=== PATIENT | female | born 1940 | race Caucasian/White ===

== ENCOUNTER 2018-01-08 23:22 | Inpatient (IN) | payer OTHER ==
[~2018-01-08] VITALS: Ht 172.7 cm; Wt 107.6 kg
[2018-01-09] VITALS (7 sets, daily range): BP systolic 108–169; BP diastolic 50–84; PULSE 70–92; TEMP 36.4–36.7; O2SAT 94–96; Ht 172.7 cm; Wt 107.6 kg
--- NOTE | 2018-01-09 00:29 | History and Physical ---
History & Physical Date & Time of Service: Jan 09, 2018 at 00:29 Chief Complaint: Sepsis Primary Care Physician: History of Present Illness Source: patient, family Patient is a 77-year-old female with past medical history of hypothyroidism, hypertension, CKD III, dyslipidemia, gallstone pancreatitis, liver abscess, ? intra-hepatic biliary malignant neoplasm as per records and other problems was a direct admit from [facility]. Patient has been complaining of diffuse abdominal pain since Friday. She states it is bandlike which is across the abdomen and intermittently radiates to the back. She grades the pain as 1/10, discomfort like, aggravates with food intake with no obvious relieving factors. Reports associated generalized weakness, nausea. Patient had significant elevated LFTs, lipase, lactic acid on labs at [facility]. Noncontrast CT of the abdomen is suggestive of new postoperative changes of cholecystectomy with increased biliary dilatation with no visible choledocholithiasis. New significant lymphadenopathy in the left external iliac chain, left inguinal region and to a lesser extent left common iliac chain suggestive of reactive lymphadenopathy or malignant lymph node enlargement. Also showed urinary bladder wall thickening suggestive of diffuse cystitis. Patient received IV fluids, Zosyn and Flagyl and was sent to [facility] for further management. Patient also reports having dysuria and difficulty with urination since last few days. UA is suggestive of possible UTI. Denies any history of chest pain, SOB, dizziness, fever, chills, vomiting, blood in stools, diarrhea, hematuria. Past Medical/Surgical History Past medical history of hypothyroidism, hypertension, CKD III, dyslipidemia, gallstone pancreatitis, liver abscess, ? intra-hepatic biliary malignant neoplasm as per records Past Surgical History: Bilateral knee replacement, cholecystectomy (In Sep 2016) , thyroidectomy Family History Mother: Colon cancer Social History Smoking Status: Never Smoker Alcohol Use: none Drug Use: none Allergies Uncoded Allergies: dairy products (Allergy, Unknown, GI SYMPTOMS, 01/09/18) lactose intolerant Home Medications Scheduled Ezetimibe (Zetia), 10 MG PO DAILY Levothyroxine Sodium (Levothyroxine Sodium), 1 TAB PO DAILY Lisinopril (Zestril), 10 MG PO DAILY Perphenazine-Amitriptyline (Perphenazine/Amitriptylin), 2 MG PO QID Review of Systems See HPI for pertinent positives & negatives. A total of 10 systems reviewed and were otherwise negative. Physical Exam General Appearance: WD/WN, no apparent distress Head: normocephalic, atraumatic Eyes: normal inspection, PERRL, EOMI, + pertinent finding (+Icterus) ENT: normal ENT inspection, hearing grossly normal Neck: supple, trachea midline Respiratory/Chest: chest non-tender, lungs clear, normal breath sounds, no respiratory distress, no accessory muscle use Cardiovascular: regular rate, rhythm, no murmur, + pertinent finding (1+ b/l edema) Abdomen/GI: normal bowel sounds, soft, + tenderness (mild generalized tenderness, no guarding or rigidity) Back: normal inspection Extremities/Musculoskelatal: no calf tenderness, + pedal edema 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 New significant lymphadenopathy in the left external iliac chain, left inguinal region and to a lesser extent left common iliac chain suggestive of reactive lymphadenopathy or malignant lymph node enlargement. Also showed urinary bladder wall thickening suggestive of diffuse cystitis. Liver USD: pending EKG EKG: pending Impression Assessment and Plan Sepsis: Secondary to possible Cholangitis, pancreatitis and UTI H/O Gallstone pancreatitis and Cholecystectomy CT abd:suggestive of new postoperative changes of cholecystectomy with increased biliary dilatation with no visible choledocholithiasis. New significant lymphadenopathy suggestive of reactive lymphadenopathy or malignant lymph node enlargement. Also showed urinary bladder wall thickening suggestive of diffuse cystitis. Significant transaminitis, hyperbilirubinemia on labs ? Intra-hepatic biliary malignant neoplasm as per records (Family/Patient denies any known malignancy) Lipase:22,784 Lactate normal Admit in telemetry Blood/Urine cultures IV fluids, start on IV Zosyn Liver ultrasound pending Consulted GI for possible ERCP NPO for now Pain not significant currently Zetia and Triavil held UTI: Started on IV Zosyn Follow-up urine culture Hypomagnesemia: Replace and monitor Hypothyroidism: Continue levothyroxine TSH normal Hypertension: Hold lisinopril 2/2 DIANA DIANA on CKD III: IV fluids Unknown baseline creatinine Monitor renal function Avoid nephrotoxic agents Cr:2.48 Dyslipidemia: Zetia held 2/2 Transaminitis DVT Px: SCDs Code Status: Patient prefers to be Full Code currently Family to bring living Will tomorrow. May need to readdress Code Status Disposition: Monitor in Telemetry Resuscitation Status VTE Prophylaxis Will order VTE Prophylaxis: Yes
[2018-01-09] MEDS ORDERED: LEVO88TA3 PO (01:31)
[2018-01-09] MEDS ORDERED: LISI-461 PO (01:31)
[2018-01-09] MEDS ORDERED: PERP2TAB6 PO (01:31)
[2018-01-09] MEDS ORDERED: EZET10TA63 PO (01:31)
[2018-01-09] MEDS ORDERED: SODIUM CHLORIDE 0.9% 1000ML 1,000 ML IV SCH (02:30)
[2018-01-09] MEDS ORDERED: ONDANSETRON INJ 2 MG/ML 2 ML VIAL IV PRN ×2 (02:30→15:45)
[2018-01-09] MEDS ORDERED: PIPERACILL/TAZOBAC IV 4.5 GM in NSS 100 ML IV ONE (02:30)
[2018-01-09] MEDS ORDERED: PIPERACILL/TAZOBAC CONSULT ACTIVE PRN (02:45)
[2018-01-09 04:00] LABS: INR 1.1 (0.9-1.1)
[2018-01-09 04:02] LABS: ALBUMIN 2.6 gm/dl (3.4-5.0); CALCIUM 8.6 mg/dl (8.5-10.1); CREATININE 2.48 mg/dl (0.60-1.20); TOTAL PROTEIN 6.5 gm/dl (6.4-8.2)
[2018-01-09 04:07] LABS: HEMATOCRIT 38.3 % (37-47); HEMOGLOBIN 12.7 g/dL (12.0-16.0); MEAN CELL VOLUME 94.8 fL (80-100); MEAN CORPUSCULAR HEMOGLOBIN 31.4 pg (25-34); MEAN CORPUSCULAR HGB CONC 33.2 g/dl (32-36); MEAN PLATELET VOLUME 10.3 fL (7.4-10.4); PLATELET COUNT 285 K/uL (130-400); RED CELL DISTRIBUTION WIDTH CV 15.1 % (11.5-14.5); WHITE BLOOD COUNT 14.58 K/uL (4.8-10.8)
[2018-01-09] MEDS ORDERED: MAGNESIUM SULFATE 1GM / D5W 1 GM in PREMIXED IN D5W 100 ML IV ONE (04:15)
[2018-01-09 04:27] LABS: BASO % 0.1 %; BASO ABS # 0.02 K/uL (0-0.2); EOS % 0.3 %; EOS ABS # 0.04 K/uL (0-0.5); IG# 0.04 K/uL (0.00-0.02); LYMPH % 52.8 %; MONO % 5.3 %; MONO ABS # 0.78 K/uL (0.11-0.59); NEUT % 41.2 %
[2018-01-09] MEDS: LEVOTHYROXINE 88 MCG TAB PO SCH (05:57)
--- NOTE | 2018-01-09 06:27 | DIAGNOSTIC IMAGING REPORT ---
ABDOMINAL ULTRASOUND, RIGHT UPPER QUADRANT HISTORY: Transaminitis. COMPARISON: CT of the abdomen and pelvis January 08, 2018 FINDINGS: No hepatic lesions are noted. There is moderate intrahepatic biliary ductal dilatation. The common bile duct is also dilated, measuring 10 mm in caliber. No common bile duct calculi are identified on this exam. The pancreas is obscured by overlying bowel gas. Note is made of a 2 x 1 x 1.3 cm cystic structure with a few linear echogenic foci within the cholecystectomy bed. IMPRESSION: 1. Moderate intra and extrahepatic biliary ductal dilatation. No common bile duct calculi or mass identified. While this could be due to previous cholecystectomy, the findings raise the possibility of occult choledocholithiasis or obstructing mass. GI consultation is recommended. 2. Obscured pancreas due to overlying bowel gas. 3. 2 x 1.1 x 1.3 cm cystic structure within the cholecystectomy bed which may reflect a dilated cystic duct remnant or gallbladder remnant. Electronically signed by: Steve Oscar M.D. 01/09/2018 6:25 AM Dictated Date/Time: 01/09/2018 6:20 AM
[2018-01-09] MEDS: PIPERACILL/TAZOBAC IV 4.5 GM in NSS 100 ML IV SCH ×2 (07:49→19:38)
--- NOTE | 2018-01-09 08:28 | Gastrointestinal Consultation ---
Gastrointestinal Consultation Date of Consultation: Jan 09, 2018 Attending Physician: Emiliano Consulting Physician: Narayan Reason for Consultation: elevated LFTs, possible cholangitis History of Present Illness Patient is a 77 year old female w/ history listed below with admission to [facility] about a year ago for gallstone pancreatitis s/p cholecystectomy complicated by post-operative infection and suspected liver abscess. At this time she had a liver bx, necrotic liver tissue, with doubt of liver abscess. Due to the necrotic tissue, they could not rule out malignancy at this time. It appears there was arranged follow up after discharge, but the appointments were missed. Pt notes from discharge a year ago until today she has overall been feeling well. Developed diffuse lower abdominal pain about a week ago. She report this is actually bilateral lower quadrants. This is worse with activity and movement. She tells me there has been vague upper abd pain, worse after PO intake. No nausea, vomiting. She reports stable weight, no unexplained weight loss, ill-fitting clothes. Dark urine, no pattie colored stools. No fever, chills , CP, SOB. She was transferred from [place] for suspected cholangitis, on Zosyn. On arrival leukocytosis at 15, plts 285, TB 6.4, AST 250, ALT 180, ALK 760, lipase 22,000. RUQ US 01/09/18: No hepatic lesions are noted. There is moderate intrahepatic biliary ductal dilatation. The common bile duct is also dilated, measuring 10 mm in caliber. No common bile duct calculi are identified on this exam. The pancreas is obscured by overlying bowel gas. Note is made of a 2 x 1 x 1.3 cm cystic structure with a few linear echogenic foci within the cholecystectomy bed Noncontrast CT ABD 01/08/18: postoperative changes of cholecystectomy with increased biliary dilatation with no visible choledocholithiasis. New significant lymphadenopathy in the left external iliac chain, left inguinal region and to a lesser extent left common iliac chain suggestive of reactive lymphadenopathy or malignant lymph node enlargement. Also showed urinary bladder wall thickening suggestive of diffuse cystitis. ABD US 12/20/16: Cholelithiasis with gallbladder wall thickening and edema, concerning for cholecystitis.Incidentally noted nonocclusive thrombus of the posterior branch of the right portal vein and occlusive thrombus of the anterior branch of the right portal vein. Cystic structures seen in the dome of the liver were better evaluated on the most recent MRI scan.Hepatic steatosis. CT Chest/Abd/Pelvis 12/23/16: Several scattered pulmonary nodules bilaterally, concerning for metastases. Additional history from [facility] (electronic medical record) indicates history of lung carcinoid tumor. Small pleural effusions bilaterally, right greater than left. Complex hypodense mass at the hepatic dome, suspicious for malignancy. 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 Enlarged lobulated uterus approximates 9.4 x 7.5 cm on axial image 74/100. While this may represent underlying leiomyomas, potential malignancy is not excluded given patient's age. There is small amount of gas in the non-dependent portion of the urinary bladder. There is no Young catheter seen on this study. Has there been recent catheterization/instrumentation?If not, please consider infection or statistically less likely enterovesical fistula. Moderate-sized hiatal hernia. Liver MRI 12/22/16: Limited study since dynamic post-contrast sequences are severely degraded by respiratory motion artifacts and lack of subtraction images. Multiple complex lesions in the right lobe of the liver with predominantly cystic areas associated with portal venous thrombosis and periportal edema. Dominant lesion shows enhancement of solid areas and delayed enhancement of the capsule. No significant washout. Although some of the imaging features favor abscesses, there is no significant diffusion restriction which is characteristically seen in abscesses.These findings are suspicious for a neoplastic process and differential including necrotic primary and secondary neoplasms such as cholangiocarcinoma, hepatocellular carcinoma, necrotic metastasis and biliary cystadenocarcinoma.4.1 cm diffusion restricting T2 hyperintense lesion in the retroperitoneum, anterior to left renal vein is concerning for lymphadenopathy.Multiple nodules in the lower lobes are suspicious for metastasis.Recommend CT chest, abdomen and pelvis with intravenous and oral contrast to assess for the extent of the disease. Also consider short interval followup versus biopsy for further characterization of these lesions.Cholelithiasis. Interval improvement of gallbladder wall thickening and fluid within the gallbladder fossa. Liver Biopsy 12/23/16: Atypical. Rare hepatocytes with abundant necrosis and rare mixed inflammatory cells. Core needle biopsy: The core needle biopsy specimen contains fragments of necrotic liver tissue with a few lymphocytes and neutrophils. Immunostains show the liver tissue is positive for hepar-1 and negative for CKAE1/3, CD56, and synapptophysin. Comment: No definitive diagnosis can be reached due to necrotic liver tissue. A neoplastic process cannot be completely excluded. The abscess is less likely without the presence of abundant neutrophils. Past Medical/Surgical History Medical Problems: (1) Hypothyroid Status: Chronic Past Medical History: HTN, CKD-3, hypothyroidism, dyslipidemia, hx gallstone pancreatitis, hx recurrent pancreatitis, hx liver abscess, There is questionable history of intra-hepatic biliary malignant neoplasm - liver lesion was bx and excludes this as far as I can find report of. Pt does not recall being told she had a CA Past Surgical History: Bilateral knee replacement, cholecystectomy, thyroidectomy, liver bx Social History Smoking Status: Never Smoker Drug Use: none Allergies Uncoded Allergies: dairy products (Allergy, Unknown, GI SYMPTOMS, 01/09/18) lactose intolerant Current Medications Home Meds and Scripts Medications Dose Route/Sig Max Daily Dose Days Date Category Zetia (Ezetimibe) 10 Mg Tab 10 Mg PO DAILY 01/09/18 Reported Levothyroxine Sodium 88 Mcg Tab 1 Tab PO DAILY 30 01/09/18 Reported Zestril (Lisinopril) 10 Mg Tab 10 Mg PO DAILY 01/09/18 Reported Perphenazine/Amitriptylin (Perphenazine-Amitriptyline) 1 Tab Tab 2 Mg PO QID 01/09/18 Reported Review of Systems Constitutional: No fever, No chills, No weight loss, No weakness, No fatigue Respiratory: No cough, No shortness of breath Cardiac: No chest pain, No edema Abdomen: + pain, No nausea, No vomiting, No diarrhea, No constipation, No GI bleeding, No dysphagia, No odynophagia Skin: + jaundice, No rash, No color change Physical Exam Date Time Temp Pulse Resp B/P (MAP) Pulse Ox O2 Delivery O2 Flow Rate FiO2 01/09/18 07:56 36.6 84 21 169/84 (112) 95 Room Air 01/09/18 04:36 36.5 86 18 108/50 (69) 94 Room Air 01/09/18 04:00 96 Room Air 01/09/18 00:15 36.7 92 18 113/73 96 Room Air General Appearance: no apparent distress Eyes: PERRL ENT: hearing grossly normal Neck: supple, trachea midline Respiratory/Chest: lungs clear, normal breath sounds, no respiratory distress, no accessory muscle use Cardiovascular: regular rate, rhythm, no edema, no gallop, no JVD Abdomen: normal bowel sounds, soft, no organomegaly, no pulsatile mass, + tenderness (generalized abd tenderness, no rebound or guarding) Neurologic/Psych: alert, normal mood/affect, oriented x 3 Skin: normal color, warm/dry, no rash, + jaundice Laboratory Results Last 24 Hours Test 01/09/18 02:56 01/09/18 03:13 Lactic Acid Level 1.2 mmol/L White Blood Count 14.58 K/uL Red Blood Count 4.04 M/uL Hemoglobin 12.7 g/dL Hematocrit 38.3 % Mean Corpuscular Volume 94.8 fL Mean Corpuscular Hemoglobin 31.4 pg Mean Corpuscular Hemoglobin Concent 33.2 g/dl Platelet Count 285 K/uL Mean Platelet Volume 10.3 fL Neutrophils (%) (Auto) 41.2 % Lymphocytes (%) (Auto) 52.8 % Monocytes (%) (Auto) 5.3 % Eosinophils (%) (Auto) 0.3 % Basophils (%) (Auto) 0.1 % Neutrophils # (Auto) 6.00 K/uL Lymphocytes # (Auto) 7.70 K/uL Monocytes # (Auto) 0.78 K/uL Eosinophils # (Auto) 0.04 K/uL Basophils # (Auto) 0.02 K/uL RDW Standard Deviation 52.0 fL RDW Coefficient of Variation 15.1 % Immature Granulocyte % (Auto) 0.3 % Immature Granulocyte # (Auto) 0.04 K/uL Blood Smear Review Platelet Estimate NORMAL Red Blood Cell Morphology Unremarkable Prothrombin Time 11.4 SECONDS Prothromb Time International Ratio 1.1 Sodium Level 139 mmol/L Potassium Level 4.0 mmol/L Chloride Level 109 mmol/L Carbon Dioxide Level 24 mmol/L Anion Gap 6.0 mmol/L Blood Urea Nitrogen 24 mg/dl Creatinine 2.48 mg/dl Est Creatinine Clear Calc Drug Dose 22.9 ml/min Estimated GFR () 20.7 Estimated GFR (Non- 17.9 BUN/Creatinine Ratio 9.8 Random Glucose 119 mg/dl Calcium Level 8.6 mg/dl Magnesium Level 1.7 mg/dl Total Bilirubin 6.4 mg/dl Aspartate Amino Transf (AST/SGOT) 256 U/L Alanine Aminotransferase (ALT/SGPT) 185 U/L Alkaline Phosphatase 764 U/L Total Protein 6.5 gm/dl Albumin 2.6 gm/dl Globulin 3.9 gm/dl Albumin/Globulin Ratio 0.7 Lipase 66867 U/L Thyroid Stimulating Hormone (TSH) 4.190 uIu/ml Impression Patient is a 77 year old female w/ history of cholecystectomy in 2017 for recurrent gallstone pancreatitis complicated by suspected post-operative infection with concern for liver abscess. Liver biopsy w/ necrotic tissue w/o evidence of abscess. Malignancy was not ruled out as the tissue as necrotic. Pt was without insurance and was lost to insurance. Was doing well until she had generalized abd pain last week, bilateral lower quadrants w/ vague upper abd pain worse after PO intake. No nausea or vomiting. No weight loss. Leukocytosis at 15, TB 6 w/ elevated transaminases. Concern for cholangitis, underlying biliary malignancy. No evidence of CBD stone or mass on non-contrast CT. Plan - NPO - LR 200 ml/hr - Analgesia PRN - Antiemetics PRN - Agree with ABX for cholangitis - Daily LFTs - Suggested MRCP to further delineate CBD. - Pt deferred due to claustrophobia - Suggested pre-medication, pt deferred - Plan for ERCP - Please call with any acute changes, questions or concern. I performed a history and physical examination of the patient. I have discussed the patient's case, impression and plan with KAREN Lucas. Her note reflects my findings and plan. Given constellation of obstructive enzyme pattern, history of gall stones and elevated pancreas enzymes, CBD stone disease is likely. Will arrange ERCP. Carmine Busch MD
[2018-01-09] MEDS ORDERED: NURSING VERBAL MED ORDER ONE (10:30)
[2018-01-09] MEDS: LACTATED RINGER'S 1000ML 1,000 ML IV SCH ×3 (10:57→21:19)
--- NOTE | 2018-01-09 11:23 | Progress Note ---
Subjective Date of Service: Jan 09, 2018. Subjective Pt evaluation today including: conversation w/ patient, physical exam, lab review, review of studies, review of inpatient medication list Saw/examined the patient in room 203 Abdominal tenderness for a week, epigastric through lower quadrants Denies fevers/chills denies nausea/vomiting/diarrhea Problem List Medical Problems: (1) Hypothyroid Status: Chronic Review of Systems Constitutional: No fever, No chills Respiratory: No shortness of breath Cardiac: No chest pain Abdomen: + pain, No nausea, No vomiting, No diarrhea Medications Current Inpatient Medications Medications (Trade) Dose Ordered Sig/Candi Route Start Time Stop Time Status Last Admin Dose Admin Ondansetron HCl (Zofran Inj) 4 mg Q6H PRN IV 01/09/18 02:30 02/08/18 02:29 Miscellaneous Information (Consult) 1 ea UD PRN N/A 01/09/18 02:45 02/08/18 02:44 Levothyroxine Sodium (Synthroid Tab) 88 mcg DAILYBB PO 01/09/18 06:00 02/08/18 05:59 01/09/18 05:57 88 MCG Piperacillin Sod/ Tazobactam Sod 4.5 gm/Sodium Chloride 120 ml @ 30 mls/hr Q8H IV 01/09/18 08:00 01/19/18 07:59 01/09/18 07:49 30 MLS/HR Lactated Ringer's 1,000 ml @ 200 mls/hr Q5H IV 01/09/18 11:00 02/08/18 10:59 01/09/18 10:57 200 MLS/HR Objective Vital Signs Date Time Temp Pulse Resp B/P (MAP) Pulse Ox O2 Delivery O2 Flow Rate FiO2 01/09/18 04:36 36.5 86 18 108/50 (69) 94 Room Air 01/09/18 04:00 96 Room Air 01/09/18 00:15 36.7 92 18 113/73 96 Room Air Physical Exam General Appearance: no apparent distress Respiratory/Chest: no respiratory distress, no accessory muscle use Cardiovascular: regular rate, rhythm, no edema, no murmur Abdomen: + tenderness (diffuse) Extremities: normal inspection, no pedal edema Neurologic/Psychiatric: no motor/sensory deficits, alert, normal mood/affect Laboratory Results Last 24 Hours Test 01/09/18 02:56 01/09/18 03:13 Lactic Acid Level 1.2 mmol/L White Blood Count 14.58 K/uL Red Blood Count 4.04 M/uL Hemoglobin 12.7 g/dL Hematocrit 38.3 % Mean Corpuscular Volume 94.8 fL Mean Corpuscular Hemoglobin 31.4 pg Mean Corpuscular Hemoglobin Concent 33.2 g/dl Platelet Count 285 K/uL Mean Platelet Volume 10.3 fL Neutrophils (%) (Auto) 41.2 % Lymphocytes (%) (Auto) 52.8 % Monocytes (%) (Auto) 5.3 % Eosinophils (%) (Auto) 0.3 % Basophils (%) (Auto) 0.1 % Neutrophils # (Auto) 6.00 K/uL Lymphocytes # (Auto) 7.70 K/uL Monocytes # (Auto) 0.78 K/uL Eosinophils # (Auto) 0.04 K/uL Basophils # (Auto) 0.02 K/uL RDW Standard Deviation 52.0 fL RDW Coefficient of Variation 15.1 % Immature Granulocyte % (Auto) 0.3 % Immature Granulocyte # (Auto) 0.04 K/uL Platelet Estimate NORMAL Red Blood Cell Morphology Unremarkable Prothrombin Time 11.4 SECONDS Prothromb Time International Ratio 1.1 Sodium Level 139 mmol/L Potassium Level 4.0 mmol/L Chloride Level 109 mmol/L Carbon Dioxide Level 24 mmol/L Anion Gap 6.0 mmol/L Blood Urea Nitrogen 24 mg/dl Creatinine 2.48 mg/dl Est Creatinine Clear Calc Drug Dose 22.9 ml/min Estimated GFR () 20.7 Estimated GFR (Non- 17.9 BUN/Creatinine Ratio 9.8 Random Glucose 119 mg/dl Calcium Level 8.6 mg/dl Magnesium Level 1.7 mg/dl Total Bilirubin 6.4 mg/dl Aspartate Amino Transf (AST/SGOT) 256 U/L Alanine Aminotransferase (ALT/SGPT) 185 U/L Alkaline Phosphatase 764 U/L Total Protein 6.5 gm/dl Albumin 2.6 gm/dl Globulin 3.9 gm/dl Albumin/Globulin Ratio 0.7 Lipase 43835 U/L Thyroid Stimulating Hormone (TSH) 4.190 uIu/ml Assessment and Plan This is a 77 year old female with a past medical history of HTN, HLD, hypothyroidism, hx. of recurrent gallstone pancreatitis s/p cholecystectomy, hx. of hypodense liver mass s/p biopsy, mood disorder - presents from [facility] due to abdominal pain, elevated LFTs Abdominal Pain and Elevated LFTs with Recurrent Pancreatitis Possible Cholangitis Hx. of Liver Mass and Concern for Biliary Duct Carcinoma - plan for now is to continue NPO status - changed NS to LR at 200mL/hr - appreciate GI input; cannot tolerate MRCP - plan for ERCP - continue Zosyn for possible underlying cholangitis - hx. of liver mass that was biopsied, with necrotic tissue - follow-up on lipase and LFTs in AM Acute Kidney Injury - possible underlying chronic kidney disease? - at this time, her creat is >2.4 - cont. IVFs - recheck in AM Urinary Tract Infection - as per records from [place], UA appears dirty - CT from [place] suggests bladder wall thickening - continue Zosyn Lymphocytosis - appreciate pathology input, concern for CLL - will order flow cytometry Lymphadenopathy - CT suggests - New significant lymphadenopathy in the left external iliac chain , left inguinal region and to a lesser extent left common iliac chain suggestive of reactive lymphadenopathy or malignant lymph node enlargement. - pending results from ERCP, may need these biopsied - concern for malignancy secondary to above findings as well DVT ppx - SCDs FULL CODE
[2018-01-09] MEDS ORDERED: INDOMETHACIN 50 MG SUPP PR ONE ×2 (12:45→15:51)
--- NOTE | 2018-01-09 15:27 | History & Physical Bridge Note ---
H&P Re-Evaluation Bridge Note: I have examined the patient, reviewed the History & Physical and in the interval since the performance of the History & Physical I have noted the following changes of clinical significance: No changes noted
[2018-01-09] MEDS ORDERED: ATROPINE SULFATE 0.1 MG/ML 5ML SYR IV PRN (15:45)
[2018-01-09] MEDS ORDERED: HYDROmorphone INJ 0.5 MG/0.5 ML SYR IV PRN (15:45)
[2018-01-09] MEDS ORDERED: EpHEDrine SULFATE INJ 50 MG/ML AMP IV PRN (15:45)
[2018-01-09] MEDS ORDERED: FENTANYL CITRATE INJ 50 MCG/1 ML 2 ML VIAL IV PRN (15:45)
[2018-01-09] MEDS ORDERED: FENTANYL CITRATE INJ 50 MCG/1 ML 2 ML VIAL ONE ×2 (15:52→16:35)
[2018-01-09] MEDS ORDERED: SUCCINYLCHOLINE 100MG/5ML SYR IV ONE (16:43)
[2018-01-09] MEDS ORDERED: LIDOCAINE HCL 2% 2 ML VIAL (20MG/ML) ONE (16:43)
[2018-01-09] MEDS ORDERED: ONDANSETRON INJ 2 MG/ML 2 ML VIAL ONE (16:43)
[2018-01-09] MEDS ORDERED: DEXAMETHASONE SOD INJ 4 MG/ML VIAL ONE (16:43)
[2018-01-09] MEDS ORDERED: PROPOFOL IV EMULSION 10 MG/ML 20 ML VIAL IV ONE (16:43)
--- NOTE | 2018-01-09 17:24 | [facility] Operative Report ---
Operative Report Operative Date Jan 09, 2018. Pre-Operative Diagnosis Jaundice, probable cholangitis Post-Operative Diagnosis Biliary dilation Procedure(s) Performed Endoscopic Retrograde Cholangiopancreatogram Sphincterotomy Surgeon Dr. Cho Estimated Blood Loss NONE Findings Biliary dilation. Sphincterotomy performed. Balloon sweep of bile duct. Nothing found. Specimens none per surgeon Drains None Anesthesia Type General Complication(s) none Disposition Recovery Room / PACU Indications Jaundice, leukocytosis, biliary dilation Description of Procedure See Provation report I attest to the content of the Intraoperative Record and any orders documented therein. Any exceptions are noted below.
--- NOTE | 2018-01-09 17:56 | GI REPORT ---
Procedure Date: 01/09/2018 3:53 PM Procedure: ERCP Indications: Abdominal pain, Jaundice, leukocytosis, pancreatitis (hyperlipasemia), Postop exam: Laparoscopic cholecystectomy Medicines: General Anesthesia, Indomethicin 100 mg rectal Complications: No immediate complications. Estimated blood loss: None Estimated Blood Loss: Estimated blood loss: none. Procedure: Pre-Anesthesia Assessment: - Prior to the procedure, a History and Physical was performed, and patient medications, allergies and sensitivities were reviewed. The patient's tolerance of previous anesthesia was reviewed. - ASA Grade Assessment: III - A patient with severe systemic disease. After obtaining informed consent, the scope was passed under direct vision. Throughout the procedure, the patient's blood pressure, pulse, and oxygen saturations were monitored continuously. The scope was introduced through the mouth, and advanced to the duodenum and used to inject contrast into the bile duct and ventral pancreatic duct. The ERCP was performed with difficulty due to Zenker's diverticulum. Successful completion of the procedure was aided by changing endoscopes. The Scope was introduced through the mouth, and advanced to the duodenum and used to locate the major papilla. Findings: A chipper machine operator film of the abdomen was obtained. The duodenoscope could not easily be passed beyond the pharynx. It was exchanged for a standard esophagogastroduodenoscopy scope. This was used for the examination of the upper gastrointestinal tract. The scope was passed under direct vision through the upper GI tract. A non-bleeding Zenker's diverticulum with a small opening, no impacted food and no stigmata of recent bleeding was found. A medium-sized hiatal hernia was present. No gross lesions were noted in the entire examined stomach. The examined duodenum was normal. A Savary guidewire was placed with the tip in the stomach and the scope was removed. The guidewire was backfed through the Olympus duodenoscope with use of the sphincterotome. The duodenoscope was then advanced over the guidewire into the esophagus. The guidewire was removed. Initial wire guided cannulation attempt through the [employer] Omni 35 resulted in guidewire cannulation of the pancreatic duct. The guidewire was left in place for and the sphincterotome was removed. The Microvasive Dreamtome RX39 tapered sphincterotome was inserted alongside the guidewire. The bile duct was cannulated with a short 0.025 inch Soft Jagwire. The sphincterotome was passed over the guidewire and the bile duct was then deeply cannulated. Contrast was injected. The entire biliary tree was diffusely dilated, acquired. A 7 mm biliary sphincterotomy was made with a monofilament traction (standard) sphincterotome using ERBE electrocautery. There was no post-sphincterotomy bleeding. To discover objects, the biliary tree was swept with a 9 mm balloon starting at the bifurcation. Nothing was found. Impression: - Zenker's diverticulum. - Medium-sized hiatal hernia. - No gross lesions in the stomach. - Normal examined duodenum. - The entire biliary tree was dilated, acquired. - A biliary sphincterotomy was performed. - The biliary tree was swept and nothing was found. Recommendation: - Return patient to [facility] for ongoing care. - Observe patient's clinical course. John Paul Cho M.D. John Paul Cho MD 01/09/2018 5:55:39 PM This report has been signed electronically. Note Initiated On: 01/09/2018 3:53 PM I attest to the content of the Intraoperative Record and orders documented therein, exceptions below
--- NOTE | 2018-01-09 18:19 | Anesthesiology Progress Note ---
Anesthesia Post Op Note Date & Time Jan 09, 2018 at 18:19 Vital Signs Pain Intensity: 0 Vital Signs Past 12 Hours Date Time Temp Pulse Resp B/P (MAP) Pulse Ox O2 Delivery O2 Flow Rate FiO2 01/09/18 18:10 36.2 69 18 141/58 98 Nasal Cannula 2 01/09/18 18:00 71 20 146/58 98 Nasal Cannula 2 01/09/18 17:50 78 20 152/65 98 Oxymask 10 01/09/18 17:40 77 18 139/56 99 Oxymask 10 01/09/18 17:32 36.2 76 17 127/60 100 Oxymask 10 01/09/18 15:26 36.6 72 16 134/61 (85) 95 Room Air 01/09/18 12:11 36.4 70 18 131/53 (79) 96 Room Air 01/09/18 12:00 Room Air 01/09/18 08:00 Room Air 01/09/18 07:56 36.6 84 21 169/84 (112) 95 Room Air Notes Mental Status: alert / awake / arousable, participated in evaluation Pt Amnestic to Procedure: Yes Nausea / Vomiting: adequately controlled Pain: adequately controlled Airway Patency, RR, SpO2: stable & adequate BP & HR: stable & adequate Hydration State: stable & adequate Anesthetic Complications: no major complications apparent
--- NOTE | 2018-01-09 19:47 | DIAGNOSTIC IMAGING REPORT ---
ERCP BILIARY DUCTAL CLINICAL HISTORY: 77 years-old Female presenting with ADD ON ERCP. TECHNIQUE: Fluoroscopy was provided for an intraoperative cholangiogram status post cholecystectomy. Contrast was injected through the cystic duct remnant. 8 fluoroscopic image(s) recorded. COMPARISON: Ultrasound from earlier the same day. FINDINGS: An endoscope projects over the duodenum. A catheter was introduced into the pancreatic duct and subsequently into the common bile duct. The common bile duct was opacified. The common duct is mildly dilated. No focal filling defect. Intrahepatic bile ducts also appear mildly dilated. The distal common duct does not distend normally, which could suggest extrinsic mass effect from the pancreatic head. Fluoroscopy dosage (mGy): 93.33. Fluoroscopy time: 176.5. Number of fluoroscopic spot images: 0. IMPRESSION: Fluoroscopy provided for an endoscopic cholangiogram. Intrahepatic and extra hepatobiliary ductal dilatation with potential mass effect on the distal common duct from the pancreatic head. Electronically signed by: Reji Rios M.D. 01/09/2018 7:46 PM Dictated Date/Time: 01/09/2018 7:43 PM
[2018-01-10] MEDS: LACTATED RINGER'S 1000ML 1,000 ML IV SCH ×5 (01:53→22:11)
[2018-01-10] MEDS: PIPERACILL/TAZOBAC IV 4.5 GM in NSS 100 ML IV SCH ×3 (03:00→18:46)
[2018-01-10 03:35] VITALS: BP 121/54; PULSE 81; TEMP 36.5; O2SAT 95
[2018-01-10] MEDS: LEVOTHYROXINE 88 MCG TAB PO SCH (05:43)
[2018-01-10 05:52] LABS: HEMOGLOBIN 11.1 g/dL (12.0-16.0); MEAN CELL VOLUME 94.7 fL (80-100); MEAN CORPUSCULAR HEMOGLOBIN 30.9 pg (25-34); MEAN CORPUSCULAR HGB CONC 32.6 g/dl (32-36); MEAN PLATELET VOLUME 10.2 fL (7.4-10.4); PLATELET COUNT 259 K/uL (130-400); RED CELL DISTRIBUTION WIDTH CV 15.1 % (11.5-14.5); RED CELL DISTRIBUTION WIDTH SD 51.9 fL (36.4-46.3); WHITE BLOOD COUNT 11.99 K/uL (4.8-10.8)
[2018-01-10 06:31] LABS: ALBUMIN 2.3 gm/dl (3.4-5.0); CALCIUM 8.5 mg/dl (8.5-10.1); CREATININE 1.82 mg/dl (0.60-1.20); POTASSIUM 4.3 mmol/L (3.5-5.1)
[2018-01-10 06:33] LABS: TOTAL PROTEIN 5.8 gm/dl (6.4-8.2)
[2018-01-10 07:49] VITALS: BP 130/59; PULSE 84; TEMP 36.4; O2SAT 94
--- NOTE | 2018-01-10 09:32 | Progress Note ---
Subjective Date of Service: Jan 10, 2018. Subjective Pt evaluation today including: conversation w/ patient, physical exam, lab review, review of studies, review of inpatient medication list Saw/examined the patient in room 203 She feels much better after the ERCP; as she states there is no abdominal pain denies nausea/vomiting/diarrhea; no fevers/chills Problem List Medical Problems: (1) Hypothyroid Status: Chronic Review of Systems Constitutional: No fever, No chills Respiratory: No shortness of breath Cardiac: No chest pain Abdomen: No pain, No nausea, No vomiting, No diarrhea, No constipation, No GI bleeding Medications Current Inpatient Medications Medications (Trade) Dose Ordered Sig/Candi Route Start Time Stop Time Status Last Admin Dose Admin Ondansetron HCl (Zofran Inj) 4 mg Q6H PRN IV 01/09/18 02:30 02/08/18 02:29 Miscellaneous Information (Consult) 1 ea UD PRN N/A 01/09/18 02:45 02/08/18 02:44 Levothyroxine Sodium (Synthroid Tab) 88 mcg DAILYBB PO 01/09/18 06:00 02/08/18 05:59 01/10/18 05:43 88 MCG Piperacillin Sod/ Tazobactam Sod 4.5 gm/Sodium Chloride 120 ml @ 30 mls/hr Q8H IV 01/09/18 08:00 01/19/18 07:59 01/10/18 03:00 30 MLS/HR Lactated Ringer's 1,000 ml @ 200 mls/hr Q5H IV 01/09/18 11:00 02/08/18 10:59 01/10/18 06:26 200 MLS/HR Objective Vital Signs Date Time Temp Pulse Resp B/P (MAP) Pulse Ox O2 Delivery O2 Flow Rate FiO2 01/10/18 08:30 Room Air 01/10/18 07:49 36.4 84 16 130/59 (82) 94 Room Air 01/10/18 04:00 Room Air 01/10/18 03:35 36.5 81 18 121/54 (76) 95 Room Air 01/10/18 00:00 Room Air 01/09/18 23:35 36.7 74 22 121/58 (79) 95 Room Air 01/09/18 20:00 Room Air 01/09/18 19:57 36.4 70 18 122/57 (78) 95 Room Air 01/09/18 18:10 36.2 69 18 141/58 98 Nasal Cannula 2 01/09/18 18:00 71 20 146/58 98 Nasal Cannula 2 01/09/18 17:50 78 20 152/65 98 Oxymask 10 01/09/18 17:40 77 18 139/56 99 Oxymask 10 01/09/18 17:32 36.2 76 17 127/60 100 Oxymask 10 01/09/18 15:26 36.6 72 16 134/61 (85) 95 Room Air 01/09/18 12:11 36.4 70 18 131/53 (79) 96 Room Air 01/09/18 12:00 Room Air Physical Exam General Appearance: WD/WN, no apparent distress Respiratory/Chest: no respiratory distress, no accessory muscle use Cardiovascular: regular rate, rhythm, no edema, no murmur Extremities: normal inspection, no pedal edema Neurologic/Psychiatric: no motor/sensory deficits, alert, normal mood/affect Laboratory Results Last 24 Hours Test 01/10/18 00:00 01/10/18 05:26 Urine Color DK YELLOW Urine Appearance CLOUDY Urine pH 5.0 Urine Specific [place] 1.021 Urine Protein NEG Urine Glucose (UA) NEG Urine Ketones NEG Urine Occult Blood NEG Urine Nitrite NEG Urine Bilirubin NEG Urine Urobilinogen NEG Urine Leukocyte Esterase SMALL White Blood Count 11.99 K/uL Red Blood Count 3.59 M/uL Hemoglobin 11.1 g/dL Hematocrit 34.0 % Mean Corpuscular Volume 94.7 fL Mean Corpuscular Hemoglobin 30.9 pg Mean Corpuscular Hemoglobin Concent 32.6 g/dl RDW Standard Deviation 51.9 fL RDW Coefficient of Variation 15.1 % Platelet Count 259 K/uL Mean Platelet Volume 10.2 fL Sodium Level 142 mmol/L Potassium Level 4.3 mmol/L Chloride Level 113 mmol/L Carbon Dioxide Level 24 mmol/L Anion Gap 5.0 mmol/L Blood Urea Nitrogen 25 mg/dl Creatinine 1.82 mg/dl Est Creatinine Clear Calc Drug Dose 31.6 ml/min Estimated GFR () 30.1 Estimated GFR (Non- 26.0 BUN/Creatinine Ratio 14.0 Random Glucose 91 mg/dl Calcium Level 8.5 mg/dl Magnesium Level 1.9 mg/dl Total Bilirubin 2.0 mg/dl Aspartate Amino Transf (AST/SGOT) 106 U/L Alanine Aminotransferase (ALT/SGPT) 122 U/L Alkaline Phosphatase 543 U/L Total Protein 5.8 gm/dl Albumin 2.3 gm/dl Globulin 3.5 gm/dl Albumin/Globulin Ratio 0.7 Lipase 998 U/L Assessment and Plan This is a 77 year old female with a past medical history of HTN, HLD, hypothyroidism, hx. of recurrent gallstone pancreatitis s/p cholecystectomy, hx. of hypodense liver mass s/p biopsy, mood disorder - presents from [facility] due to abdominal pain, elevated LFTs Abdominal Pain and Elevated LFTs with Recurrent Pancreatitis Possible Cholangitis Hx. 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 of liver mass that was biopsied, with necrotic tissue - follow-up on lipase and LFTs in AM Acute Kidney Injury - improving 01/10 - creatinine improving to 1.8 - continue IVFs for now 01/09 - possible underlying chronic kidney disease? - at this time, her creat is >2.4 - cont. IVFs - recheck in AM Urinary Tract Infection - as per records from [place], UA appears dirty - CT from [place] suggests bladder wall thickening - continue Zosyn Lymphocytosis - appreciate pathology input, concern for CLL - will order flow cytometry Lymphadenopathy - CT suggests - New significant lymphadenopathy in the left external iliac chain , left inguinal region and to a lesser extent left common iliac chain suggestive of reactive lymphadenopathy or malignant lymph node enlargement. - pending results from ERCP, may need these biopsied - concern for malignancy secondary to above findings as well DVT ppx - SCDs FULL CODE
[2018-01-10 11:45] VITALS: BP 118/59; PULSE 74; TEMP 36.6; O2SAT 97
--- NOTE | 2018-01-10 14:13 | PROGRESS NOTE ---
DATE: 01/10/2018 HISTORY OF PRESENT ILLNESS: Ms. Qiu feels great today. She had an ERCP yesterday. No stones were found, but her bilirubin has improved since the procedure. She has no symptoms or complaints and wishes to go home. At this point, I think it is reasonable to slowly advance her diet and if she tolerates her diet she could be discharged. She has had no nausea, vomiting, diarrhea. PHYSICAL EXAMINATION: VITAL SIGNS: During this bedside visit her most recent temperature is 36.6, blood pressure is 118/59, pulse is 74. SKIN: Anicteric. EYES: Show anicteric sclerae. NECK: Supple. CHEST: Clear. HEART: Regular rate and rhythm. ABDOMEN: Soft with good bowel sounds. There is no organomegaly, masses, or rebound tenderness noted. EXTREMITIES: Warm with good distal pulses. No edema. NEUROLOGIC: She is alert and oriented x3 and grossly intact. LABORATORY DATA: Her hemoglobin is stable at 11. White count is 11.9. Liver enzymes show a total bilirubin that went from 6.4-2. Transaminases have improved and her lipase which was 22,000 has gone down to 998. IMPRESSION AND PLAN: At this point, I do think advancing her diet slowly and seeing how she tolerates this is acceptable. If she tolerates her diet with no further nausea, vomiting or abdominal pain, she could be discharged but she will need outpatient follow up with hepatology in [place]. She was already seen by them last year and because of her abnormal imaging of her abdomen and further concerns for other issues and abnormalities, she would require outpatient hepatology followup in [place] since they already have records and have done significant workup last year. I have encouraged her to do this since it appears that she did not want a followup last time. I would ask the primary service to further impress upon the need for followup. AYAD
[2018-01-10 15:21] VITALS: BP 123/59; PULSE 63; TEMP 36.7; O2SAT 100
[2018-01-10 19:33] VITALS: BP 121/49; PULSE 70; TEMP 36.6; O2SAT 95
[2018-01-10 23:35] VITALS: BP 119/66; PULSE 71; TEMP 36.6; O2SAT 94
[2018-01-11] VITALS (8 sets, daily range): BP systolic 126–138; BP diastolic 60–76; PULSE 68–76; TEMP 36.4–36.7; O2SAT 93–97
[2018-01-11] MEDS: LACTATED RINGER'S 1000ML 1,000 ML IV SCH (02:55)
[2018-01-11] MEDS: PIPERACILL/TAZOBAC IV 4.5 GM in NSS 100 ML IV SCH (02:55)
[2018-01-11] MEDS: LEVOTHYROXINE 88 MCG TAB PO SCH (05:51)
[2018-01-11 06:01] LABS: HEMATOCRIT 34.5 % (37-47); HEMOGLOBIN 10.9 g/dL (12.0-16.0); MEAN CELL VOLUME 96.1 fL (80-100); MEAN CORPUSCULAR HEMOGLOBIN 30.4 pg (25-34); MEAN CORPUSCULAR HGB CONC 31.6 g/dl (32-36); MEAN PLATELET VOLUME 10.5 fL (7.4-10.4); PLATELET COUNT 258 K/uL (130-400); RED CELL DISTRIBUTION WIDTH CV 14.9 % (11.5-14.5); RED CELL DISTRIBUTION WIDTH SD 52.7 fL (36.4-46.3); WHITE BLOOD COUNT 11.11 K/uL (4.8-10.8)
[2018-01-11 06:34] LABS: ALBUMIN 2.1 gm/dl (3.4-5.0); CALCIUM 8.4 mg/dl (8.5-10.1); CREATININE 1.72 mg/dl (0.60-1.20); POTASSIUM 3.8 mmol/L (3.5-5.1)
[2018-01-11 06:37] LABS: TOTAL PROTEIN 5.5 gm/dl (6.4-8.2)
[2018-01-11] MEDS ORDERED: NURSING VERBAL MED ORDER ONE (07:30)
--- NOTE | 2018-01-11 15:01 | Progress Note ---
Subjective Date of Service: Jan 11, 2018. Subjective Pt evaluation today including: conversation w/ patient, physical exam, lab review, review of studies, review of inpatient medication list Saw/examined the patient in room 203 She's c/o diarrhea today, multiple episodes as per nursing C. diff sent out and pending Patient states she's tolerating her PO diet, does have issues with dysphagia - she states is chronic; does better with soft foods Problem List Medical Problems: (1) Hypothyroid Status: Chronic Review of Systems Constitutional: No fever, No chills Respiratory: No shortness of breath Cardiac: No chest pain Abdomen: + diarrhea, No pain, No nausea, No vomiting, No constipation, No GI bleeding Medications Current Inpatient Medications Medications (Trade) Dose Ordered Sig/Candi Route Start Time Stop Time Status Last Admin Dose Admin Ondansetron HCl (Zofran Inj) 4 mg Q6H PRN IV 01/09/18 02:30 02/08/18 02:29 Levothyroxine Sodium (Synthroid Tab) 88 mcg DAILYBB PO 01/09/18 06:00 02/08/18 05:59 01/11/18 05:51 88 MCG Fluconazole (Diflucan Tab) 150 mg ONE ONCE PO 01/11/18 15:00 01/11/18 15:01 UNV Objective Vital Signs Date Time Temp Pulse Resp B/P (MAP) Pulse Ox O2 Delivery O2 Flow Rate FiO2 01/11/18 12:05 Room Air 01/11/18 11:56 36.6 72 96 126/69 (88) 96 Room Air 01/11/18 08:10 Room Air 01/11/18 08:10 36.6 76 16 129/63 (85) 96 Room Air 01/11/18 04:00 Room Air 01/11/18 03:35 36.6 68 17 127/60 (82) 93 Room Air 01/10/18 23:59 Room Air 01/10/18 23:35 36.6 71 18 119/66 (83) 94 Room Air 01/10/18 20:00 Room Air 01/10/18 19:33 36.6 70 20 121/49 (73) 95 Room Air 01/10/18 16:00 Room Air 01/10/18 15:21 36.7 63 20 123/59 (80) 100 Room Air Physical Exam General Appearance: no apparent distress Respiratory/Chest: lungs clear, normal breath sounds, no respiratory distress, no accessory muscle use Cardiovascular: regular rate, rhythm, no edema, no murmur Abdomen: non tender, soft, + abnormal bowel sounds (hyperactive) Laboratory Results Last 24 Hours Test 01/11/18 05:40 White Blood Count 11.11 K/uL Red Blood Count 3.59 M/uL Hemoglobin 10.9 g/dL Hematocrit 34.5 % Mean Corpuscular Volume 96.1 fL Mean Corpuscular Hemoglobin 30.4 pg Mean Corpuscular Hemoglobin Concent 31.6 g/dl RDW Standard Deviation 52.7 fL RDW Coefficient of Variation 14.9 % Platelet Count 258 K/uL Mean Platelet Volume 10.5 fL Sodium Level 143 mmol/L Potassium Level 3.8 mmol/L Chloride Level 113 mmol/L Carbon Dioxide Level 25 mmol/L Anion Gap 5.0 mmol/L Blood Urea Nitrogen 20 mg/dl Creatinine 1.72 mg/dl Est Creatinine Clear Calc Drug Dose 33.5 ml/min Estimated GFR () 32.0 Estimated GFR (Non- 27.6 BUN/Creatinine Ratio 11.7 Random Glucose 76 mg/dl Calcium Level 8.4 mg/dl Magnesium Level 1.6 mg/dl Total Bilirubin 1.6 mg/dl Aspartate Amino Transf (AST/SGOT) 61 U/L Alanine Aminotransferase (ALT/SGPT) 89 U/L Alkaline Phosphatase 431 U/L Total Protein 5.5 gm/dl Albumin 2.1 gm/dl Globulin 3.4 gm/dl Albumin/Globulin Ratio 0.6 Lipase 478 U/L Assessment and Plan This is a 77 year old female with a past medical history of HTN, HLD, hypothyroidism, hx. of recurrent gallstone pancreatitis s/p cholecystectomy, hx. of hypodense liver mass s/p biopsy, mood disorder - presents from [facility] due to abdominal pain, elevated LFTs Abdominal Pain and Elevated LFTs with Recurrent Pancreatitis Possible Cholangitis Hx. 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 Diff pending - can likely d/c home once diarrhea improves/slows - will need outpatient follow-up with hepatology at [facility] for the possible liver mass - will need repeat CT as outpatient to follow-up on the lymphadenopathy; may need biopsy if persistent - flow cytometry for CLL pending - can be followed up on as an outpatient 01/10 - s/p ERCP - dilatation noted; no clear source indicated - she is doing better now, continue IVFs - NPO for now, would appreciate GI input regarding diet - would likely advance slowly 01/09 - plan for now is to continue NPO status - changed NS to LR at 200mL/hr - appreciate GI input; cannot tolerate MRCP - plan for ERCP - continue Zosyn for possible underlying cholangitis - hx. of liver mass that was biopsied, with necrotic tissue - follow-up on lipase and LFTs in AM Acute Kidney Injury - improving 01/10 - creatinine improving to 1.8 - continue IVFs for now 01/09 - possible underlying chronic kidney disease? - at this time, her creat is >2.4 - cont. IVFs - recheck in AM Urinary Tract Infection - as per records from [place], UA appears dirty - CT from [place] suggests bladder wall thickening - continue Zosyn Lymphocytosis - appreciate pathology input, concern for CLL - will order flow cytometry Lymphadenopathy - CT suggests - New significant lymphadenopathy in the left external iliac chain , left inguinal region and to a lesser extent left common iliac chain suggestive of reactive lymphadenopathy or malignant lymph node enlargement. - pending results from ERCP, may need these biopsied - concern for malignancy secondary to above findings as well DVT ppx - SCDs FULL CODE
[2018-01-11] MEDS ORDERED: FLUCONAZOLE 100 MG TAB PO ONE (15:30)
[2018-01-12 01:20] VITALS: O2SAT 97
[2018-01-12] MEDS: LEVOTHYROXINE 88 MCG TAB PO SCH (06:05)
[2018-01-12 06:45] LABS: HEMATOCRIT 34.1 % (37-47); HEMOGLOBIN 11.1 g/dL (12.0-16.0); MEAN CELL VOLUME 94.2 fL (80-100); MEAN CORPUSCULAR HEMOGLOBIN 30.7 pg (25-34); MEAN CORPUSCULAR HGB CONC 32.6 g/dl (32-36); MEAN PLATELET VOLUME 10.2 fL (7.4-10.4); PLATELET COUNT 267 K/uL (130-400); RED CELL DISTRIBUTION WIDTH CV 14.4 % (11.5-14.5); RED CELL DISTRIBUTION WIDTH SD 49.6 fL (36.4-46.3); WHITE BLOOD COUNT 11.41 K/uL (4.8-10.8)
[2018-01-12 07:17] LABS: CALCIUM 8.3 mg/dl (8.5-10.1); CREATININE 1.34 mg/dl (0.60-1.20); POTASSIUM 3.6 mmol/L (3.5-5.1)
[2018-01-12 08:00] VITALS: O2SAT 97
[2018-01-12 08:10] VITALS: BP 131/77; PULSE 67; TEMP 36.6; O2SAT 93
[2018-01-12 08:18] LABS: ALBUMIN 2.3 gm/dl (3.4-5.0)
[2018-01-12 08:22] LABS: TOTAL PROTEIN 5.7 gm/dl (6.4-8.2)
[2018-01-12] MEDS: MAGNESIUM SULFATE 1GM / D5W 1 GM in PREMIXED IN D5W 100 ML IV SCH ×2 (08:29→10:36)
[2018-01-12] MEDS: LACTOBACILLUS ACIDOPHILUS (FLORANEX) TAB PO SCH ×2 (08:29→11:28)
--- NOTE | 2018-01-12 09:45 | Anesthesiology Progress Note ---
Anesthesia Post Op Note Date & Time Jan 12, 2018 at 09:44 Vital Signs Pain Intensity: 0.0 Vital Signs Past 12 Hours Date Time Temp Pulse Resp B/P (MAP) Pulse Ox O2 Delivery O2 Flow Rate FiO2 01/12/18 08:10 36.6 67 18 131/77 (95) 93 Room Air 01/12/18 01:20 97 Room Air 2.0 01/11/18 23:34 36.7 75 18 132/74 (93) 93 Room Air Notes Mental Status: alert / awake / arousable, participated in evaluation Pt Amnestic to Procedure: Yes Nausea / Vomiting: adequately controlled Pain: adequately controlled Airway Patency, RR, SpO2: stable & adequate BP & HR: stable & adequate Hydration State: stable & adequate Anesthetic Complications: no major complications apparent
--- NOTE | 2018-01-12 10:00 | Gastroenterology Progress Note ---
Progress Note Date of Service: Jan 12, 2018 Subjective Pt evaluation today including: conversation w/ patient, physical exam, chart review, lab review Pt was seen and evaluated, chart reviewed. S/P ERCP for suspected retained CBD stone. No significant findings. Fluoro images sent to radiology w/ concern of mass effect. Pt notes feeling well. Wants to go home. Is not agreeable to any additional imaging and became tearful when I discussed CT pancreatic protocol or MRI. Notes she does not want anything else done during admission. No abdominal pain. No nausea or vomiting. Tolerating diet. No fever, chills, CP, SOB. Fluoroscopy 01/09/18: Fluoroscopy provided for an endoscopic cholangiogram. Intrahepatic and extra hepatobiliary ductal dilatation with potential mass effect on the distal common duct from the pancreatic head. ERCP 01/09/18: Zenker's diverticulum. Medium-sized hiatal hernia. No gross lesions in the stomach. Normal examined duodenum.The entire biliary tree was dilated, acquired. A biliary sphincterotomy was performed. The biliary tree was swept and nothing was found RUQ US 01/09/18: No hepatic lesions are noted. There is moderate intrahepatic biliary ductal dilatation. The common bile duct is also dilated, measuring 10 mm in caliber. No common bile duct calculi are identified on this exam. The pancreas is obscured by overlying bowel gas. Note is made of a 2 x 1 x 1.3 cm cystic structure with a few linear echogenic foci within the cholecystectomy bed Noncontrast CT ABD 01/08/18: postoperative changes of cholecystectomy with increased biliary dilatation with no visible choledocholithiasis. New significant lymphadenopathy in the left external iliac chain, left inguinal region and to a lesser extent left common iliac chain suggestive of reactive lymphadenopathy or malignant lymph node enlargement. Also showed urinary bladder wall thickening suggestive of diffuse cystitis. ABD US 12/20/16: Cholelithiasis with gallbladder wall thickening and edema, concerning for cholecystitis.Incidentally noted nonocclusive thrombus of the posterior branch of the right portal vein and occlusive thrombus of the anterior branch of the right portal vein. Cystic structures seen in the dome of the liver were better evaluated on the most recent MRI scan.Hepatic steatosis. CT Chest/Abd/Pelvis 12/23/16: Several scattered pulmonary nodules bilaterally, concerning for metastases. Additional history from [facility] (electronic medical record) indicates history of lung carcinoid tumor. Small pleural effusions bilaterally, right greater than left. Complex hypodense mass at the hepatic dome, suspicious for malignancy. 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 Enlarged lobulated uterus approximates 9.4 x 7.5 cm on axial image 74/100. While this may represent underlying leiomyomas, potential malignancy is not excluded given patient's age. There is small amount of gas in the non-dependent portion of the urinary bladder. There is no Young catheter seen on this study. Has there been recent catheterization/instrumentation?If not, please consider infection or statistically less likely enterovesical fistula. Moderate-sized hiatal hernia. Liver MRI 12/22/16: Limited study since dynamic post-contrast sequences are severely degraded by respiratory motion artifacts and lack of subtraction images. Multiple complex lesions in the right lobe of the liver with predominantly cystic areas associated with portal venous thrombosis and periportal edema. Dominant lesion shows enhancement of solid areas and delayed enhancement of the capsule. No significant washout. Although some of the imaging features favor abscesses, there is no significant diffusion restriction which is characteristically seen in abscesses.These findings are suspicious for a neoplastic process and differential including necrotic primary and secondary neoplasms such as cholangiocarcinoma, hepatocellular carcinoma, necrotic metastasis and biliary cystadenocarcinoma.4.1 cm diffusion restricting T2 hyperintense lesion in the retroperitoneum, anterior to left renal vein is concerning for lymphadenopathy.Multiple nodules in the lower lobes are suspicious for metastasis.Recommend CT chest, abdomen and pelvis with intravenous and oral contrast to assess for the extent of the disease. Also consider short interval followup versus biopsy for further characterization of these lesions.Cholelithiasis. Interval improvement of gallbladder wall thickening and fluid within the gallbladder fossa. Liver Biopsy 12/23/16: Atypical. Rare hepatocytes with abundant necrosis and rare mixed inflammatory cells. Core needle biopsy: The core needle biopsy specimen contains fragments of necrotic liver tissue with a few lymphocytes and neutrophils. Immunostains show the liver tissue is positive for hepar-1 and negative for CKAE1/3, CD56, and synapptophysin. Comment: No definitive diagnosis can be reached due to necrotic liver tissue. A neoplastic process cannot be completely excluded. The abscess is less likely without the presence of abundant neutrophils. Review of Systems Constitutional: No fever, No chills, No weight loss, No weakness Respiratory: No cough, No shortness of breath Cardiac: No chest pain, No edema Abdomen: No pain, No nausea, No vomiting, No diarrhea, No constipation, No GI bleeding Skin: No rash, No color change Medications Current Inpatient Medications Medications (Trade) Dose Ordered Sig/Candi Route Start Time Stop Time Status Last Admin Dose Admin Ondansetron HCl (Zofran Inj) 4 mg Q6H PRN IV 01/09/18 02:30 02/08/18 02:29 Levothyroxine Sodium (Synthroid Tab) 88 mcg DAILYBB PO 01/09/18 06:00 02/08/18 05:59 01/12/18 06:05 88 MCG Magnesium Sulfate 1 gm/Prmx 100 ml @ 100 mls/hr Q1H IV 01/12/18 08:00 01/12/18 09:59 01/12/18 08:29 100 MLS/HR Lactobacillus Acidophilus (Floranex Tab) 4 tab TIDM PO 01/12/18 08:00 02/11/18 07:59 01/12/18 08:29 4 TAB Objective Vital Signs Date Time Temp Pulse Resp B/P (MAP) Pulse Ox O2 Delivery O2 Flow Rate FiO2 01/12/18 08:10 36.6 67 18 131/77 (95) 93 Room Air 01/12/18 01:20 97 Room Air 2.0 01/11/18 23:34 36.7 75 18 132/74 (93) 93 Room Air 01/11/18 21:00 97 Room Air 2.0 01/11/18 16:35 36.4 69 20 97 2.0 01/11/18 16:17 36.4 69 20 138/76 (96) 97 Room Air 01/11/18 16:04 96 Room Air 01/11/18 12:05 Room Air 01/11/18 11:56 36.6 72 96 126/69 (88) 96 Room Air Physical Exam General Appearance: no apparent distress Eyes: PERRL ENT: hearing grossly normal Neck: supple, trachea midline Respiratory/Chest: normal breath sounds, no respiratory distress, no accessory muscle use Cardiovascular: regular rate, rhythm, no edema, no gallop, no JVD Abdomen: normal bowel sounds, non tender, soft, no organomegaly Neurologic/Psych: alert, normal mood/affect, oriented x 3 Skin: normal color, no jaundice, warm/dry Laboratory Results Last 24 Hours Test 01/12/18 06:29 White Blood Count 11.41 K/uL Red Blood Count 3.62 M/uL Hemoglobin 11.1 g/dL Hematocrit 34.1 % Mean Corpuscular Volume 94.2 fL Mean Corpuscular Hemoglobin 30.7 pg Mean Corpuscular Hemoglobin Concent 32.6 g/dl RDW Standard Deviation 49.6 fL RDW Coefficient of Variation 14.4 % Platelet Count 267 K/uL Mean Platelet Volume 10.2 fL Sodium Level 141 mmol/L Potassium Level 3.6 mmol/L Chloride Level 111 mmol/L Carbon Dioxide Level 25 mmol/L Anion Gap 5.0 mmol/L Blood Urea Nitrogen 13 mg/dl Creatinine 1.34 mg/dl Est Creatinine Clear Calc Drug Dose 43.0 ml/min Estimated GFR () 43.3 Estimated GFR (Non- 37.3 BUN/Creatinine Ratio 9.8 Random Glucose 78 mg/dl Calcium Level 8.3 mg/dl Magnesium Level 1.5 mg/dl Total Bilirubin 1.2 mg/dl Aspartate Amino Transf (AST/SGOT) 48 U/L Alanine Aminotransferase (ALT/SGPT) 73 U/L Alkaline Phosphatase 405 U/L Total Protein 5.7 gm/dl Albumin 2.3 gm/dl Globulin 3.4 gm/dl Albumin/Globulin Ratio 0.7 Lipase 379 U/L Assessment and Plan 77 year old female w/ history of cholecystectomy in 2017 for recurrent gallstone pancreatitis complicated by suspected post-operative infection with concern for liver abscess. Liver biopsy w/ necrotic tissue w/o evidence of abscess. Malignancy was not ruled out as the tissue as necrotic. Pt was without insurance and was lost to insurance. Was doing well until she had generalized abd pain last week, bilateral lower quadrants w/ vague upper abd pain worse after PO intake. No nausea or vomiting. No weight loss. Is now S/P ERCP w/o evidence of gallstone or GB sludge. Leukocytosis, LFTs and lipase continue to improve suggestive of passed stone or sludge. However, fluoro pictures raises concern of mass effect. Additional imaging was suggested at this time, pt is currently not agreeable to further inpatient evaluation. - Diet as tolerated - Analgesia PRN - Antiemetics PRN - Complete 7 day course of ABX for cholangitis - CT pancreatic protocol - Outpatient hepatology referral in [place] Attg: I interviewed and examined pt, reviewed chart and labs. Pt s/p ERCP / sphincterotomy for ? gallstone panc now with improved clinical status, improved LFTs. Would consider further outpt w/u to look for evidence of occult CA; however pt does not want further w/u.
--- NOTE | 2018-01-12 14:17 | Progress Note ---
Subjective Date of Service: Jan 12, 2018. Subjective Pt evaluation today including: conversation w/ patient, physical exam, lab review, review of studies, review of inpatient medication list Saw/examined the patient in room 459 She's doing well, diarrhea is improving abdominal pain, nausea, vomiting - resolved Denies fevers/chills Eager to go home - she does not want further work-up Problem List Medical Problems: (1) Hypothyroid Status: Chronic Review of Systems Constitutional: No fever, No chills Respiratory: No cough, No sputum, No shortness of breath Cardiac: No chest pain, No edema, No palpitations Abdomen: + diarrhea (improving), No pain, No nausea, No vomiting, No constipation, No GI bleeding Medications Current Inpatient Medications Medications (Trade) Dose Ordered Sig/Candi Route Start Time Stop Time Status Last Admin Dose Admin Ondansetron HCl (Zofran Inj) 4 mg Q6H PRN IV 01/09/18 02:30 02/08/18 02:29 Levothyroxine Sodium (Synthroid Tab) 88 mcg DAILYBB PO 01/09/18 06:00 02/08/18 05:59 01/12/18 06:05 88 MCG Lactobacillus Acidophilus (Floranex Tab) 4 tab TIDM PO 01/12/18 08:00 02/11/18 07:59 01/12/18 11:28 4 TAB Objective Vital Signs Date Time Temp Pulse Resp B/P (MAP) Pulse Ox O2 Delivery O2 Flow Rate FiO2 01/12/18 08:10 36.6 67 18 131/77 (95) 93 Room Air 01/12/18 08:00 97 Room Air 01/12/18 01:20 97 Room Air 2.0 01/11/18 23:34 36.7 75 18 132/74 (93) 93 Room Air 01/11/18 21:00 97 Room Air 2.0 01/11/18 16:35 36.4 69 20 97 2.0 01/11/18 16:17 36.4 69 20 138/76 (96) 97 Room Air 01/11/18 16:04 96 Room Air Physical Exam General Appearance: no apparent distress Respiratory/Chest: no respiratory distress, no accessory muscle use Cardiovascular: regular rate, rhythm, no edema, no murmur Abdomen: normal bowel sounds, non tender, soft Extremities: normal inspection, no pedal edema Neurologic/Psychiatric: no motor/sensory deficits, alert, normal mood/affect Laboratory Results Last 24 Hours Test 01/12/18 06:29 White Blood Count 11.41 K/uL Red Blood Count 3.62 M/uL Hemoglobin 11.1 g/dL Hematocrit 34.1 % Mean Corpuscular Volume 94.2 fL Mean Corpuscular Hemoglobin 30.7 pg Mean Corpuscular Hemoglobin Concent 32.6 g/dl RDW Standard Deviation 49.6 fL RDW Coefficient of Variation 14.4 % Platelet Count 267 K/uL Mean Platelet Volume 10.2 fL Sodium Level 141 mmol/L Potassium Level 3.6 mmol/L Chloride Level 111 mmol/L Carbon Dioxide Level 25 mmol/L Anion Gap 5.0 mmol/L Blood Urea Nitrogen 13 mg/dl Creatinine 1.34 mg/dl Est Creatinine Clear Calc Drug Dose 43.0 ml/min Estimated GFR () 43.3 Estimated GFR (Non- 37.3 BUN/Creatinine Ratio 9.8 Random Glucose 78 mg/dl Calcium Level 8.3 mg/dl Magnesium Level 1.5 mg/dl Total Bilirubin 1.2 mg/dl Aspartate Amino Transf (AST/SGOT) 48 U/L Alanine Aminotransferase (ALT/SGPT) 73 U/L Alkaline Phosphatase 405 U/L Total Protein 5.7 gm/dl Albumin 2.3 gm/dl Globulin 3.4 gm/dl Albumin/Globulin Ratio 0.7 Lipase 379 U/L Assessment and Plan This is a 77 year old female with a past medical history of HTN, HLD, hypothyroidism, hx. of recurrent gallstone pancreatitis s/p cholecystectomy, hx. of hypodense liver mass s/p biopsy, mood disorder - presents from [facility] due to abdominal pain, elevated LFTs Abdominal Pain and Elevated LFTs with Recurrent Pancreatitis Possible Cholangitis Hx. 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 Clemens on January 15 at 6:30PM - should have a follow-up with a lsat instructor - [facility] [place]-Henrry vsFreida Perez - concern for liver mass vs. biliary ductal carcinoma - may need outpatient pancreatic MRI/CT - will need outpatient biopsy of pelvic lymph nodes - possible CLL - will complete Cipro + Flagyl for four more days for possible cholangitis 01/11 - advancing diet, tolerating mechanical soft - +diarrhea, C. Diff pending - can likely d/c home once diarrhea improves/slows - will need outpatient follow-up with hepatology at [facility] for the possible liver mass - will need repeat CT as outpatient to follow-up on the lymphadenopathy; may need biopsy if persistent - flow cytometry for CLL pending - can be followed up on as an outpatient 01/10 - s/p ERCP - dilatation noted; no clear source indicated - she is doing better now, continue IVFs - NPO for now, would appreciate GI input regarding diet - would likely advance slowly 01/09 - plan for now is to continue NPO status - changed NS to LR at 200mL/hr - appreciate GI input; cannot tolerate MRCP - plan for ERCP - continue Zosyn for possible underlying cholangitis - hx. of liver mass that was biopsied, with necrotic tissue - follow-up on lipase and LFTs in AM Acute Kidney Injury - improving 01/10 - creatinine improving to 1.8 - continue IVFs for now 01/09 - possible underlying chronic kidney disease? - at this time, her creat is >2.4 - cont. IVFs - recheck in AM Urinary Tract Infection - as per records from [place], UA appears dirty - CT from [place] suggests bladder wall thickening - continue Zosyn Lymphocytosis - appreciate pathology input, concern for CLL - flow cytometry performed - Monoclonal B-cell population detected by flow cytometry with an immunophenotype suggestive of chronic lymphocytic leukemia / small lymphocytic lymphoma (CLL/SLL), CD38 negative Lymphadenopathy - CT suggests - New significant lymphadenopathy in the left external iliac chain , left inguinal region and to a lesser extent left common iliac chain suggestive of reactive lymphadenopathy or malignant lymph node enlargement. - pending results from ERCP, may need these biopsied - concern for malignancy secondary to above findings as well DVT ppx - SCDs FULL CODE
[2018-01-12] MEDS ORDERED: METR-163 PO (14:23)
[2018-01-12] MEDS ORDERED: LCTX PO (14:23)
[2018-01-12] MEDS ORDERED: CIPR-255 PO (14:23)
--- NOTE | 2018-01-12 14:51 | Discharge Instructions ---
Discharge Instructions Date of Service Jan 12, 2018. Admission Reason for Admission: Sepsis Discharge Discharge Diagnosis / Problem: Pancreatitis Discharge Goals Goal(s): Decrease discomfort, Improve function, Diagnostic testing, Therapeutic intervention Activity Recommendations Activity Limitations: resume your previous activity . Instructions / Follow-Up Instructions / Follow-Up Please follow-up with Dr. Clemens on January 15 at 6:30PM * You will need a complete work-up as an outpatient; like it was mentioned while you were in the hospital, we are concerned about a possible cancer. * Your blood work in the hospital was concerning for something called chronic lymphocytic leukemia (CLL) - you should see a farm worker/oncologist for further input * Please get a CT scan of the pancreas (pancreatic protocol) - there was concern about a mass when an they did the ERCP (scope) around one of the ducts * You will need to see a grain elevator clerk (liver specialist) at [place] or [place] for possible biopsy of the liver again - In 2017, you were at [place] and had a Liver MRI done as well as a liver biopsy - unfortunately, the tissue obtained from the biopsy was necrotic ( tissue) and no definitive diagnosis was made at that time * You should also have another CT scan of the abdomen and pelvis with contrast and will need a biopsy of any inflamed or enlarged lymph nodes, if they persist * You will be on Cipro + Flagyl (two antibiotics) for possible infection ( cholangitis) * You can take these antibiotics with a probiotic Current Hospital Diet Patient's current hospital diet: AHA Diet (Heart Healthy) Discharge Diet Recommended Diet: AHA Diet (Heart Healthy) Procedures Procedures Performed: Endoscopic Retrograde Cholangiopancreatogram Sphincterotomy Pending Studies Studies pending at discharge: yes (Flow Cytometry) List of pending studies: flow Cytometry Medical Emergencies . Who to Call and When: Medical Emergencies: If at any time you feel your situation is an emergency, please call 911 immediately. . Non-Emergent Contact Non-Emergency issues call your: Primary Care Provider, Certified Physical Therapist Assistant, Oncologist Call Non-Emergent contact if: temperature is above 101.5, your pain is worsening, your pain is concerning you . . "Provider Documentation" section prepared by Remedios Cummings. .
--- NOTE | 2018-01-12 14:56 | Discharge Summary ---
Discharge Summary Date of Service Jan 12, 2018. Discharge Summary Admission Date: Jan 09, 2018 at 00:33 Discharge Date: Jan 12, 2018 Discharge Disposition: Home Principal Diagnosis: Abdominal Pain and Elevated LFTs with Recurrent Pancreatitis Possible Cholangitis Hx. 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 L External Iliac Chain Lymphadenopathy Acute Kidney Injury - resolved Urinary Tract Infection - resolved Medication Reconciliation New Medications: Ciprofloxacin Hcl (Cipro) 500 Mg Tab 500 MG PO BID for 4 Days, #8 TAB Metronidazole (Flagyl) 500 Mg Tab 500 MG PO TID for 4 Days, #12 TAB Lactobacillus Acidophilus (Floranex) 1 Tab Tab 4 TAB PO TIDM for 5 Days, #60 TAB Continued Medications: Levothyroxine Sodium (Levothyroxine Sodium) 88 Mcg Tab 1 TAB PO DAILY for 30 Days, #30 TAB 5 Refills Lisinopril (Zestril) 10 Mg Tab 10 MG PO DAILY, TAB Perphenazine-Amitriptyline (Perphenazine/Amitriptylin) 1 Tab Tab 2 MG PO QID Discontinued Medications: Ezetimibe (Zetia) 10 Mg Tab 10 MG PO DAILY, TAB Admission Information HPI (per Admitting provider): Patient is a 77-year-old female with past medical history of hypothyroidism, hypertension, CKD III, dyslipidemia, gallstone pancreatitis, liver abscess, ? intra-hepatic biliary malignant neoplasm as per records and other problems was a direct admit from [facility]. Patient has been complaining of diffuse abdominal pain since Friday. She states it is bandlike which is across the abdomen and intermittently radiates to the back. She grades the pain as 1/10, discomfort like, aggravates with food intake with no obvious relieving factors. Reports associated generalized weakness, nausea. Patient had significant elevated LFTs, lipase, lactic acid on labs at [facility]. Noncontrast CT of the abdomen is suggestive of new postoperative changes of cholecystectomy with increased biliary dilatation with no visible choledocholithiasis. New significant lymphadenopathy in the left external iliac chain, left inguinal region and to a lesser extent left common iliac chain suggestive of reactive lymphadenopathy or malignant lymph node enlargement. Also showed urinary bladder wall thickening suggestive of diffuse cystitis. Patient received IV fluids, Zosyn and Flagyl and was sent to [facility] for further management. Patient also reports having dysuria and difficulty with urination since last few days. UA is suggestive of possible UTI. Denies any history of chest pain, SOB, dizziness, fever, chills, vomiting, blood in stools, diarrhea, hematuria. Physical Exam (per Admitting): General Appearance: WD/WN, no apparent distress Head: normocephalic, atraumatic Eyes: normal inspection, PERRL, EOMI, + pertinent finding (+Icterus) ENT: normal ENT inspection, hearing grossly normal Neck: supple, trachea midline Respiratory/Chest: chest non-tender, lungs clear, normal breath sounds, no respiratory distress, no accessory muscle use Cardiovascular: regular rate, rhythm, no murmur, + pertinent finding (1+ b/ l edema) Abdomen/GI: normal bowel sounds, soft, + tenderness (mild generalized tenderness, no guarding or rigidity) Back: normal inspection Extremities/Musculoskelatal: no calf tenderness, + pedal edema Neurologic/Psych: camp cook II-XII nml as tested, no motor/sensory deficits, alert , normal mood/affect, oriented x 3 Skin: normal color, + jaundice Hospital Course This is a 77 year old female with a past medical history of HTN, HLD, hypothyroidism, hx. of recurrent gallstone pancreatitis s/p cholecystectomy, hx. of hypodense liver mass s/p biopsy, mood disorder - presents from [facility] due to abdominal pain, elevated LFTs Abdominal Pain and Elevated LFTs with Recurrent Pancreatitis Possible Cholangitis Hx. 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 Clemens on January 15 at 6:30PM - should have a follow-up with a size marker - [facility] [place] vs[place] - concern for liver mass vs. biliary ductal carcinoma - may need outpatient pancreatic MRI/CT - will need outpatient biopsy of pelvic lymph nodes - possible CLL - will complete Cipro + Flagyl for four more days for possible cholangitis 01/11 - advancing diet, tolerating mechanical soft - +diarrhea, C. Diff pending - can likely d/c home once diarrhea improves/slows - will need outpatient follow-up with hepatology at [facility] for the possible liver mass - will need repeat CT as outpatient to follow-up on the lymphadenopathy; may need biopsy if persistent - flow cytometry for CLL pending - can be followed up on as an outpatient 01/10 - s/p ERCP - dilatation noted; no clear source indicated - she is doing better now, continue IVFs - NPO for now, would appreciate GI input regarding diet - would likely advance slowly 01/09 - plan for now is to continue NPO status - changed NS to LR at 200mL/hr - appreciate GI input; cannot tolerate MRCP - plan for ERCP - continue Zosyn for possible underlying cholangitis - hx. of liver mass that was biopsied, with necrotic tissue - follow-up on lipase and LFTs in AM Acute Kidney Injury - improving 01/10 - creatinine improving to 1.8 - continue IVFs for now 01/09 - possible underlying chronic kidney disease? - at this time, her creat is >2.4 - cont. IVFs - recheck in AM Urinary Tract Infection - as per records from [place], UA appears dirty - CT from [place] suggests bladder wall thickening - continue Zosyn Lymphocytosis - appreciate pathology input, concern for CLL - flow cytometry performed - Monoclonal B-cell population detected by flow cytometry with an immunophenotype suggestive of chronic lymphocytic leukemia / small lymphocytic lymphoma (CLL/SLL), CD38 negative Lymphadenopathy - CT suggests - New significant lymphadenopathy in the left external iliac chain , left inguinal region and to a lesser extent left common iliac chain suggestive of reactive lymphadenopathy or malignant lymph node enlargement. - pending results from ERCP, may need these biopsied - concern for malignancy secondary to above findings as well DVT ppx - SCDs FULL CODE Total time spent on discharge = 60 minutes This includes examination of the patient, discharge planning, medication reconciliation, and communication with other providers. Discharge Instructions Please follow-up with Dr. Clemens on January 15 at 6:30PM * You will need a complete work-up as an outpatient; like it was mentioned while you were in the hospital, we are concerned about a possible cancer. * Your blood work in the hospital was concerning for something called chronic lymphocytic leukemia (CLL) - you should see a program management specialist/oncologist for further input * Please get a CT scan of the pancreas (pancreatic protocol) - there was concern about a mass when an they did the ERCP (scope) around one of the ducts * You will need to see a size marker (liver specialist) at [place] or [place] for possible biopsy of the liver again - In 2016, you were at [place] and had a Liver MRI done as well as a liver biopsy - unfortunately, the tissue obtained from the biopsy was necrotic ( tissue) and no definitive diagnosis was made at that time * You should also have another CT scan of the abdomen and pelvis with contrast and will need a biopsy of any inflamed or enlarged lymph nodes, if they persist * You will be on Cipro + Flagyl (two antibiotics) for possible infection ( cholangitis) * You can take these antibiotics with a probiotic
[2018-01-12 15:08] VITALS: BP 131/77; PULSE 67; TEMP 36.6; O2SAT 93
== END 2018-01-12 17:38 | disposition home or self-care (01) | DRG 445 ==
LOC: C.2E 01-09 00:33 → ENRESERV 01-11 15:14 → C.MS4W 01-11 16:13
PROVIDERS: ADMIT Internal Medicine; ATTEND Family Medicine
PROC: BF11YZZ Fluoroscopy of Biliary and Pancreatic Ducts using Other Contrast (ICD-10-PCS; principal; 2018-01-09 07:30)
PROC: 0F998ZZ Drainage of Common Bile Duct, Via Natural or Artificial Opening Endoscopic (ICD-10-PCS; principal; 2018-01-09 07:30)
DX: K83.0 Cholangitis (principal); K86.1 Other chronic pancreatitis; N39.0 Urinary tract infection, site not specified; N17.9 Acute kidney failure, unspecified; C91.90 Lymphoid leukemia, unspecified not having achieved remission; R17 Unspecified jaundice; C22.1 Intrahepatic bile duct carcinoma; K83.8 Other specified diseases of biliary tract; R59.0 Localized enlarged lymph nodes; E83.42 Hypomagnesemia; R79.89 Other specified abnormal findings of blood chemistry; R19.7 Diarrhea, unspecified; K22.5 Diverticulum of esophagus, acquired; K44.9 Diaphragmatic hernia without obstruction or gangrene; F40.240 Claustrophobia; E89.0 Postprocedural hypothyroidism; I12.9 Hypertensive chronic kidney disease with stage 1 through stage 4 chronic kidney disease, or unspecified chronic kidney disease; N18.3 Chronic kidney disease, stage 3 (moderate); E78.5 Hyperlipidemia, unspecified; F39 Unspecified mood [affective] disorder; E73.9 Lactose intolerance, unspecified; Z79.899 Other long term (current) drug therapy; Z90.49 Acquired absence of other specified parts of digestive tract; Z87.19 Personal history of other diseases of the digestive system; Z96.653 Presence of artificial knee joint, bilateral; Z80.0 Family history of malignant neoplasm of digestive organs